=== PATIENT | male | born 1965 | race Asian ===

== ENCOUNTER 2017-09-18 23:10 | Emergency (ER) | payer OTHER ==
[~2017-09-18] VITALS: Ht 190.5 cm; Wt 99.8 kg
[~2017-09-18 23:10] MED LIST: DIAZ-345 PO; LVT.1T PO; PANT20TA2 PO
[2017-09-18] MEDS ORDERED: LACTATED RINGERS 1,000 ML IV ONE (23:29)
[2017-09-18] MEDS ORDERED: TETANUS,DIPTH,PERTUSS P/F (BOOSTRIX) 0.5 ML VIAL IM ONE (23:30)
[2017-09-18 23:50] LABS: BASOPHILS % (AUTO) 0 % (0-10); EOSINOPHILS # (AUTO) 0.1 10^3/uL (0.0-0.3); EOSINOPHILS % (AUTO) 1 % (0-10); HEMATOCRIT 38 % (40-54); HEMOGLOBIN 12.9 G/DL (13.3-17.7); LYMPHOCYTES # (AUTO) 3.5 X 10^3 (1.0-4.0); LYMPHOCYTES % (AUTO) 56 % (12-44); MEAN CORPUSCULAR HEMOGLOBIN 27 PG (25-34); MEAN CORPUSCULAR HGB CONC 34 G/DL (32-36); MEAN CORPUSCULAR VOLUME 80 FL (80-99); MEAN PLATELET VOLUME 12.6 FL (7.4-10.4); MONOCYTES # (AUTO) 0.5 X 10^3 (0.0-1.0); MONOCYTES % (AUTO) 7 % (0-12); NEUTROPHILS # (AUTO) 2.3 X 10^3 (1.8-7.8); NEUTROPHILS % (AUTO) 36 % (42-75); PLATELET COUNT 166 10^3/uL (130-400); RED BLOOD COUNT 4.76 10^6/uL (4.35-5.85); RED CELL DISTRIBUTION WIDTH 13.7 % (10.0-14.5); WHITE BLOOD COUNT 6.3 10^3/uL (4.3-11.0)
[2017-09-18 23:59] LABS: PROTHROMBIN TIME PATIENT 12.7 SEC (12.2-14.7)
[2017-09-19] MEDS ORDERED: NS 250 ML (IVPB) BAG IV ONE
[2017-09-19] MEDS ORDERED: IOHEXOL 350 MG/ML 100 ML (OMNIPAQUE 350) VIAL IV ONE
[2017-09-19 00:09] LABS: ALANINE AMINOTRANSFERASE 23 U/L (0-55); ALBUMIN 4.3 GM/DL (3.2-4.5); ALKALINE PHOSPHATASE 50 U/L (40-136); AMYLASE 37 U/L (25-125); BILIRUBIN,TOTAL 0.3 MG/DL (0.1-1.0); BUN/CREATININE RATIO 19; CALCIUM 9.4 MG/DL (8.5-10.1); CARBON DIOXIDE 22 MMOL/L (21-32); CHLORIDE 106 MMOL/L (98-107); CREATININE SERUM 0.98 MG/DL (0.60-1.30); GFR ESTIMATED > 60; GLUCOSE 119 MG/DL (70-105); LIPASE 28 U/L (8-78); POTASSIUM 4.1 MMOL/L (3.6-5.0); SODIUM 141 MMOL/L (135-145); TOTAL PROTEIN 7.3 GM/DL (6.4-8.2)
[2017-09-19] MEDS ORDERED: LEVO200T6 (00:18)
[2017-09-19] MEDS ORDERED: DEXT20TA8 (00:18)
[2017-09-19] MEDS ORDERED: DICL100G18 TP (01:25)
--- NOTE | 2017-09-19 01:26 | ED Trauma-Multisystem ---
General Chief Complaint: Trauma-Non Activation Stated Complaint: FELL THRU CEILING Nursing Triage Note: Pt reports fell thru ceiling of [employer] onto the floor landing on left side with hand /arm stretched out. C/O bilat sides hurting and hurts to take deep breathe. Pt continues to use texting and communicating with others throughout triage. 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[place] ) , AND FELL THROUGH THE CEILING OCCURRED AROUND 2230 TONIGHT PT LANDED ON OUTSTRETCHED LEFT HAND, LEFT SIDE OF BODY PT STATES HE HAD A MILD BUMP TO HIS HEAD, BUT NO LOSS OF CONSCIOUSNESS C/O LEFT RIB PAIN--STATES THEY FEEL LIKE THEY ARE POPPING AND IT HURTS TO BREATHE C/O DIFFUSE UPPER ABDOMINAL PAIN C/O RIGHT POSTERIOR RIB PAIN C/O LEFT SHOULDER PAIN C/O LEFT HAND AND WRIST PAIN C/O RIGHT ELBOW ABRASIONS/SUPERFICIAL LACERATIONS NO PARESTHESIAS OR MOTOR DEFICITS NO VISION CHANGES NO NAUSEA/VOMITING NO DIZZINESS NO NECK OR SPINE PAIN [facility]: DR. CHUNG Allergies and Home Medications Allergies Coded Allergies: No Known Drug Allergies (Unverified , 06/20/13) Home Medications Diclofenac Sodium 100 Gm Gel..gram., 100 GM TP TID Prescribed by: ALDO FELDER on 09/19/17 0125 Patient Home Medication List Home Medication List Reviewed: Yes Review of Systems Constitutional: no symptoms reported Eyes: No Symptoms Reported Ears: No Symptoms Reported Nose: No Symptoms Reported Mouth: No Symptoms Reported Throat: No Symptoms to Report Respiratory: see HPI Cardiovascular: See HPI Gastrointestinal: see HPI Genitourinary: no symptoms reported Musculoskeletal: see HPI Skin: see HPI Psychiatric/Neurological: No Symptoms Reported; Denies Cognitive Dysfunction, Denies Headache Past Vafogsj-Yewvyr-Xxjzqs Hx Patient Social History Alcohol Use: Regular Use Recreational Drug Use: No Smoking Status: Never a Smoker Recent Foreign Travel: No Contact w/Someone Who Travel: No Recent Infectious Disease Expo: No Recent Hopitalizations: No Immunizations Up To Date Tetanus Booster (TDap): More than 5yrs Seasonal Allergies Seasonal Allergies: No Past Medical History Surgeries: Yes (ganglion cyst removal) Respiratory: No Cardiac: No Neurological: No Genitourinary: No Gastrointestinal: No Musculoskeletal: No Endocrine: Yes Hypothyroidsim HEENT: No Cancer: No Psychosocial: Yes ADD/ADHD Integumentary: No Blood Disorders: No Adverse Reaction/Blood Tranf: No Physical Exam Vital Signs Vital Signs - First Documented 09/18/17 23:21 Temp 98.6 Pulse 87 Resp 20 B/P (MAP) 154/109 (124) Pulse Ox 99 O2 Delivery Room Air Temperature (Fahrenheit): 98.6 General Appearance: No Apparent Distress, WD/WN, Other (SMILING, VERY TALKATIVE , PT IS TEXTING/ PLAYING ON PHONE THROUGHOUT ER STAY) Head: No Evidence of Injury Eyes: Bilateral Eye Normal Inspection (GLASSES INTACT), Bilateral Eye PERRL, Bilateral Eye EOMI Ears, Nose, Throat: Hearing Grossly Normal, No Evidence of ENT Injury, No Dental Injury Neck: Full Range of Motion, Normal Inspection, Non Tender, Supple Cardiovascular: Regular Rate, Rhythm, No Edema, No JVD, No Murmur, Normal Peripheral Pulses Respiratory: Normal Breath Sounds, No Accessory Muscle Use, No Respiratory Distress, Other (LEFT ANTERIOR/LATERAL/POSTERIOR CHEST WALL TENDERNESS, RIGHT POSTERIOR CHEST WALL TENDERNESS) Gastrointestinal: Normal Bowel Sounds, No Organomegaly, No Pulsatile Mass, Soft , Tenderness (DIFFUSE UPPER ABDOMINAL TENDERNESS) Back: Normal Inspection, No CVA Tenderness, No Vertebral Tenderness Extremity: Normal Capillary Refill, Normal Range of Motion, No Calf Tenderness , No Pedal Edema, Other (TENDERNESS TO LEFT SHOULDER, LEFT WRIST AND THENAR AREA , ABRASIONS AND TENDERNESS TO RIGHT ELBOW) Neurologic/Psychiatric: Alert, Oriented x3, No Motor/Sensory Deficits, Normal Mood/Affect, 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; No Abnormal Cerebellar Tests Skin: Normal Color, Warm/Dry, Other ( ABOVE) Progress/Results/Core Measures Results/Orders Lab Results Laboratory Tests Test 09/18/17 23:40 09/19/17 01:20 Range/Units White Blood Count 6.3 4.3-11.0 10^3/uL Red Blood Count 4.76 4.35-5.85 10^6/uL Hemoglobin 12.9 L 13.3-17.7 G/DL Hematocrit 38 L 40-54 % Mean Corpuscular Volume 80 80-99 FL Mean Corpuscular Hemoglobin 27 25-34 PG Mean Corpuscular Hemoglobin Concent 34 32-36 G/DL Red Cell Distribution Width 13.7 10.0-14.5 % Platelet Count 166 130-400 10^3/uL Mean Platelet Volume 12.6 H 7.4-10.4 FL Neutrophils (%) (Auto) 36 L 42-75 % Lymphocytes (%) (Auto) 56 H 12-44 % Monocytes (%) (Auto) 7 0-12 % Eosinophils (%) (Auto) 1 0-10 % Basophils (%) (Auto) 0 0-10 % Neutrophils # (Auto) 2.3 1.8-7.8 X 10^3 Lymphocytes # (Auto) 3.5 1.0-4.0 X 10^3 Monocytes # (Auto) 0.5 0.0-1.0 X 10^3 Eosinophils # (Auto) 0.1 0.0-0.3 10^3/uL Basophils # (Auto) 0.0 0.0-0.1 10^3/uL Prothrombin Time 12.7 12.2-14.7 SEC INR Comment 1.0 0.8-1.4 Activated Partial Thromboplast Time 26 24-35 SEC Sodium Level 141 135-145 MMOL/L Potassium Level 4.1 3.6-5.0 MMOL/L Chloride Level 106 98-107 MMOL/L Carbon Dioxide Level 22 21-32 MMOL/L Anion Gap 13 5-14 MMOL/L Blood Urea Nitrogen 19 H 7-18 MG/DL Creatinine 0.98 0.60-1.30 MG/DL Estimat Glomerular Filtration Rate > 60 BUN/Creatinine Ratio 19 Glucose Level 119 H 70-105 MG/DL Calcium Level 9.4 8.5-10.1 MG/DL Total Bilirubin 0.3 0.1-1.0 MG/DL Aspartate Amino Transf (AST/SGOT) 24 5-34 U/L Alanine Aminotransferase (ALT/SGPT) 23 0-55 U/L Alkaline Phosphatase 50 40-136 U/L Troponin I < 0.30 <0.30 NG/ML Total Protein 7.3 6.4-8.2 GM/DL Albumin 4.3 3.2-4.5 GM/DL Amylase Level 37 25-125 U/L Lipase 28 8-78 U/L Serum Alcohol < 10 <10 MG/DL Urine Color YELLOW Urine Clarity CLEAR Urine pH 6 5-9 Urine Specific [place] 1.015 L 1.016-1.022 Urine Protein 1+ H NEGATIVE Urine Glucose (UA) NEGATIVE NEGATIVE Urine Ketones NEGATIVE NEGATIVE Urine Nitrite NEGATIVE NEGATIVE Urine Bilirubin NEGATIVE NEGATIVE Urine Urobilinogen NORMAL NORMAL MG/DL Urine Leukocyte Esterase NEGATIVE NEGATIVE Urine RBC (Auto) NEGATIVE NEGATIVE Urine RBC NONE /HPF Urine WBC NONE /HPF Urine Squamous Epithelial Cells RARE /HPF Urine Crystals NONE /LPF Urine Bacteria NEGATIVE /HPF Urine Casts NONE /LPF Urine Mucus NEGATIVE /LPF Urine Culture Indicated NO Urine Opiates Screen NEGATIVE NEGATIVE Urine Oxycodone Screen NEGATIVE NEGATIVE Urine Methadone Screen NEGATIVE NEGATIVE Urine Propoxyphene Screen NEGATIVE NEGATIVE Urine Barbiturates Screen NEGATIVE NEGATIVE Ur Tricyclic Antidepressants Screen NEGATIVE NEGATIVE Urine Phencyclidine Screen NEGATIVE NEGATIVE Urine Amphetamines Screen POSITIVE H NEGATIVE Urine Methamphetamines Screen NEGATIVE NEGATIVE Urine Benzodiazepines Screen POSITIVE H NEGATIVE Urine Cocaine Screen NEGATIVE NEGATIVE Urine Cannabinoids Screen NEGATIVE NEGATIVE My Orders Orders - ALDO FELDER K DO Dipht,Pertuss(Acell),Tet Adult (Boostrix (09/18/17 23:30) Saline Lock/Iv-Start (09/18/17 23:29) Ekg Tracing (09/18/17 23:29) Monitor-Rhythm Ecg Trace Only (09/18/17 23:29) Ct Head/Cervical Spine Wo (09/18/17 23:29) Ct Thoracic/Lumbar Spine Wo (09/18/17 23:29) Amylase (09/18/17 23:29) Cbc With Automated Diff (09/18/17 23:29) Comprehensive Metabolic Panel (09/18/17 23:29) Lipase (09/18/17 23:29) Protime With Inr (09/18/17 23:29) Partial Thromboplastin Time (09/18/17 23:29) Troponin I (09/18/17 23:29) Ua Culture If Indicated (09/18/17 23:29) Saline Lock/Iv-Start (09/18/17 23:29) Lactated Ringers (Lr 1000 Ml Iv Solution (09/18/17 23:29) Ct Chest/Abdomen/Pelvis W (09/18/17 23:29) Iohexol Injection (Omnipaque 350 Mg/Ml 1 (09/19/17 00:00) Ns (Ivpb) (Sodium Chloride 0.9%) (09/19/17 00:00) Chest Pa/Lat (2 View) (09/19/17 00:01) Ribs, Left 2-3 Views (09/19/17 00:01) Shoulder, Left, 3 Views (09/19/17 00:01) Elbow, Right, 3 Views (09/19/17 00:01) Wrist, Left, 3 Views Or More (09/19/17 00:01) Hand, Left, 3 Views (09/19/17 00:01) Pelvis (09/19/17 00:01) Alcohol (09/19/17 00:16) Drug Screen Stat (Urine) (09/19/17 00:16) Wound Dressing-Ed (09/19/17 01:17) Ibuprofen Tablet (Motrin Tablet) (09/19/17 01:30) Ketorolac Injection (Toradol Injection) (09/19/17 01:30) Orphenadrine Injection (Norflex Injectio (09/19/17 01:30) Ketorolac Injection (Toradol Injection) (09/19/17 01:29) Orphenadrine Injection (Norflex Injectio (09/19/17 01:29) Medications Given in ED Current Medications Medications Dose Ordered Sig/Arlette Route Start Time Stop Time Status Last Admin Dose Admin Diphtheria/ Tetanus/Acell Pertussis 0.5 ml ONCE ONCE IM 09/18/17 23:30 09/18/17 23:34 DC 09/19/17 00:25 0.5 ML Ibuprofen 800 mg ONCE ONCE PO 09/19/17 01:30 09/19/17 01:31 DC 09/19/17 01:32 800 MG Iohexol 100 ml ONCE ONCE IV 09/19/17 00:00 09/19/17 00:01 DC 09/18/17 23:53 100 ML Ketorolac Tromethamine 30 mg ONCE ONCE IVP 09/19/17 01:30 09/19/17 01:41 DC 09/19/17 01:33 30 MG Lactated Ringer's 1,000 ml @ 0 mls/hr Q0M ONCE IV 09/18/17 23:29 09/18/17 23:34 DC 09/19/17 00:25 999 MLS/HR Orphenadrine Citrate 60 mg ONCE ONCE IVP 09/19/17 01:30 09/19/17 01:41 DC 09/19/17 01:32 60 MG Sodium Chloride 80 ml ONCE ONCE IV 09/19/17 00:00 09/19/17 00:01 DC 09/18/17 23:53 80 ML Vital Signs/I&O 09/18/17 09/19/17 09/19/17 09/19/17 23:21 00:25 01:32 01:33 Temp 98.6 98.6 98.6 98.6 Pulse 87 Resp 20 B/P (MAP) 154/109 (124) Pulse Ox 99 O2 Delivery Room Air 09/19/17 09/19/17 01:45 01:45 Temp 98.6 98.6 Pulse 84 87 Resp 20 20 B/P (MAP) 150/98 (124) 150/98 (115) Pulse Ox 99 99 O2 Delivery Room Air Room Air Blood Pressure Mean: 124 Progress Progress Note : Progress Note UNEVENTFUL ER STAY PT AMBULATES INTO AND OUT OF ER WITHOUT DIFFICULTY PT DECLINES ANY RX'S FOR PILLS, ONLY REQUESTS TOPICAL MEDICATION TO PUT ON SORE AREAS Initial ECG Impression Date: Sep 19, 2017 Initial ECG Impression Time: 00:24 Initial ECG Rate: 74 Initial ECG Rhythm: Normal Sinus Diagnostic Imaging Comments CXR--NO ACUTE PROCESS RIGHT ELBOW--NO ACUTE PROCESS LEFT SHOULDER--NO ACUTE PROCESS LEFT HAND--NO ACUTE PROCESS LEFT HAND--NO ACUTE PROCESS PELVIS--NO ACUTE PROCESS ALL PENDING RADIOLOGIST REVIEW CT THORACIC/LUMBAR SPINE--NO ACUTE PROCESS PER [facility] VIA FAX @ 0038 CT CHEST/ABDOMEN/PELVIS--NO ACUTE PROCESS, PER [facility] VIA FAX @ 0038 CT HEAD/CERVICAL SPINE--NO ACUTE PROCESS, PER [facility] VIA FAX @ 0112 Reviewed: Reviewed by Me Departure Impression Primary Impression: S/P FALL THROUGH CEILING Additional Impressions: MINOR HEAD CONTUSION WITHOUT LOSS OF CONSCIOUSNESS Contusion of left shoulder Chest wall contusion Contusion of left hand Left wrist sprain Cervical strain Back strain Dffjgwdvvr-cjfvoyxwc-itneqzt (DPT) vaccination administered at current visit Abrasion of right elbow, initial encounter Disposition: 01 HOME, SELF-CARE Condition: Stable Departure-Patient Inst. Referrals: JOSE CHUNG DO (PCP/Family) Primary Care Physician Patient Instructions: CHEST CONTUSION, Cervical Muscle Strain (DC), Lumbar Muscle Strain (DC), Minor Head Injury (DC), Shoulder Sprain (DC), Skin Abrasions (DC), Wound Care (DC), Wrist Sprain (DC) Add. Discharge Instructions: ICE TO SORE AREAS AT 20 MINUTE INTERVALS FOR FIRST 2 DAYS, THEN ALTERNATE ICE AND HEAT TO SORE AREAS AT 20 MINUTE INTERVALS ACTIVITIES TOLERATED TYLENOL 1 GRAM / MOTRIN 800 MG 4 TIMES A DAY FOR PAIN FOLLOW UP WITH YOUR DR IN 1 WEEK IF NO BETTER All discharge instructions reviewed with patient and/or family. Voiced understanding. Scripts Diclofenac Sodium (Voltaren) 100 Gm Gel..gram. 100 GM TP TID, #1 TUBE Prov: ALDO FELDER DO 09/19/17 ALDO FELDER DO Sep 19, 2017 01:26
[2017-09-19] MEDS ORDERED: ORPHENADRINE 60 MG/2 ML (NORFLEX) AMP ONE (01:29)
[2017-09-19] MEDS ORDERED: KETOROLAC 30 MG/ML VIAL ONE (01:29)
[2017-09-19 01:30] LABS: BILIRUBIN,URINE NEGATIVE (NEGATIVE); CLARITY,URINE CLEAR; COLOR,URINE YELLOW; GLUCOSE, URINE (UA) NEGATIVE (NEGATIVE); KETONES,URINE NEGATIVE (NEGATIVE); LEUKOCYTE ESTERASE ,URINE NEGATIVE (NEGATIVE); NITRITE,URINE NEGATIVE (NEGATIVE); PH,URINE 6 (5-9); PROTEIN,URINE 1+ (NEGATIVE); UROBILINOGEN,URINE NORMAL (NORMAL)
[2017-09-19] MEDS ORDERED: ORPHENADRINE 60 MG/2 ML (NORFLEX) AMP IVP ONE (01:30)
[2017-09-19] MEDS ORDERED: KETOROLAC 30 MG/ML VIAL IVP ONE (01:30)
[2017-09-19] MEDS ORDERED: IBUPROFEN 800 MG (MOTRIN) TAB PO ONE (01:30)
[2017-09-19 01:37] LABS: BACTERIA,URINE NEGATIVE /HPF; SQUAMOUS EPITHELIAL CELL,UR RARE /HPF
[2017-09-19 01:42] LABS: AMPHETAMINE SCREEN, URINE POSITIVE (NEGATIVE); BARBITURATE SCREEN URINE NEGATIVE (NEGATIVE); BENZODIAZEPINES SCREEN URINE POSITIVE (NEGATIVE); CANNABINOID SCREEN, URINE NEGATIVE (NEGATIVE); COCAINE SCREEN URINE NEGATIVE (NEGATIVE); METHADONE STAT NEGATIVE (NEGATIVE); METHAMPHETAMINE SCREEN URINE S NEGATIVE (NEGATIVE); OPIATE SCREEN URINE NEGATIVE (NEGATIVE); OXYCODONE STAT NEGATIVE (NEGATIVE); PROPOXYPHENE STAT NEGATIVE (NEGATIVE); TRICYCLIC ANTIDEPRESSANTS SCRE NEGATIVE (NEGATIVE)
[2017-09-19 01:45] VITALS: BP 150/98
--- NOTE | 2017-09-19 07:28 | Diagnostic Imaging Report ---
INDICATION: Status post fall through ceiling with pelvic pain. TECHNIQUE: AP pelvis 12:41 AM CORRELATION STUDY: None FINDINGS: The pelvis demonstrates no evidence for acute fracture. The pectineal lines and obturator rings are maintained. Pubic symphysis and SI joints are unremarkable. Hips unremarkable. Contrast material in the urinary bladder does obscure some bony detail. IMPRESSION: Negative examination of the pelvis. Dictated by: Dictated on workstation # [id number]
--- NOTE | 2017-09-19 07:29 | Diagnostic Imaging Report ---
INDICATION: Trauma, fall through ceiling, pain. TECHNIQUE: Three views of the left hand. CORRELATION STUDY: None FINDINGS: There is normal alignment and appearance of the osseous structures of the hand. The joint spaces are maintained. There is no acute fracture. Mild narrowing radiocarpal row. Soft tissues are unremarkable. IMPRESSION: 1. Negative for acute bony abnormality of the hand. Dictated by: Dictated on workstation # [id number]
--- NOTE | 2017-09-19 07:32 | Diagnostic Imaging Report ---
INDICATION: Fall. COMPARISON: None. FINDINGS: Three views of the left shoulder are obtained. No acute fracture, malalignment or osseous destructive process is seen. The glenohumeral and the acromioclavicular joints appear unremarkable. IMPRESSION: Negative left shoulder. Dictated by: Dictated on workstation # [id number]
--- NOTE | 2017-09-19 07:34 | Diagnostic Imaging Report ---
INDICATION: Trauma COMPARISON: None FINDINGS: Two views of the chest were obtained. Heart size is normal. The pulmonary vessels appear unremarkable. Thoracic aorta is mildly tortuous. There is no mediastinal widening. There is no pneumothorax or pleural fluid. Diaphragms are mildly flattened suggestive of COPD. Lungs otherwise clear. No acute osseous abnormality is suspected. IMPRESSION: No evidence of an acute cardiopulmonary abnormality. Dictated by: Dictated on workstation # [id number]
--- NOTE | 2017-09-19 07:34 | Diagnostic Imaging Report ---
INDICATION: Trauma, fall through ceiling, rib pain. TECHNIQUE: Three views left ribs 12:39 a.m. CORRELATION STUDY: None FINDINGS: No acute displaced left rib fracture. The left lung with minimal atelectasis at its base. No significant effusion or pneumothorax. IMPRESSION: 1. Negative for acute displaced left rib fracture. Dictated by: Dictated on workstation # [id number]
--- NOTE | 2017-09-19 07:36 | Diagnostic Imaging Report ---
INDICATION: Trauma, fall through ceiling, pain TECHNIQUE: 3 views of the right elbow CORRELATION STUDY: None FINDINGS: Alignment anatomic. No acute fracture. Mild ossification along the lateral epicondyle may be likely chronic in nature. Minimal spurlike bony protuberance off the proximal ulna. No abnormal joint effusion. IMPRESSION: 1. Negative for acute bony abnormality of the elbow. Likely mild degenerative changes. Dictated by: Dictated on workstation # [id number]
--- NOTE | 2017-09-19 07:50 | Diagnostic Imaging Report ---
INDICATION: Trauma, fall through ceiling, pain. TECHNIQUE: Four views of the left wrist. CORRELATION STUDY: None. FINDINGS: Mild narrowing of the radiocarpal row is present likely chronic and degenerative. Very slight prominent appearance of scapholunate interval but does remain within normal limits. Minimal cystic change about the scaphoid and lunate. The visualized soft tissues appearing unremarkable. IMPRESSION: 1. Negative acute bony abnormality about the left wrist. Likely degenerative change of the radiocarpal row. Scapholunate interval slightly prominent but remains within normal limits. Dictated by: Dictated on workstation # [id number]
--- NOTE | 2017-09-19 08:04 | Diagnostic Imaging Report ---
PROCEDURE: CT chest, abdomen, and pelvis with contrast. TECHNIQUE: Multiple contiguous axial images were obtained through the chest, abdomen, and pelvis after the administration of intravenous contrast. INDICATION: Status post fall through ceiling, pain. CORRELATION STUDY: None FINDINGS: CT CHEST: Heart size normal. Thoracic aorta appearing unremarkable without evidence for aneurysm or dissection. No significant mediastinal hematoma. No pathologically enlarged lymphadenopathy. Small hiatal hernia. Lung rodriguez are clear. No infiltrate or evidence for contusion. No significant effusion or pneumothorax. Multifocal degenerative change about the thoracic spine with slight anterior wedging lower thoracic vertebral bodies and disc space narrowing. CT ABDOMEN and PELVIS: Liver, spleen, pancreas, gallbladder, adrenal glands and kidneys are unremarkable. Abdominal aorta normal in contour. Gastrointestinal tract demonstrates mild distention with retained gastric contents in the stomach. Mild severity fecal retention. No obstruction or inflammation. Normal appendix. No abdominal ascites or free air. Urinary bladder unremarkable. Prostate gland unremarkable. Small fat-containing bilateral inguinal hernias. Osseous structures demonstrate no suggestion for acute bony abnormality. There is asymmetric disc space narrowing at L5-S1 level. Osteophyte results in foraminal narrowing. IMPRESSION: CT CHEST: 1. Negative for acute traumatic abnormality about the chest. CT ABDOMEN and PELVIS: 1. Negative for acute traumatic abnormality about the abdomen and/or pelvis. A preliminary report was provided by [employer]. Dictated by: Dictated on workstation # [id number]
--- NOTE | 2017-09-19 08:15 | Diagnostic Imaging Report ---
INDICATION: Trauma, fall through ceiling, pain. TECHNIQUE: Noncontrast CT imaging of the thoracic and lumbar spine with multiplanar reformatted images.. CORRELATION STUDY: None FINDINGS: Thoracic spinal alignment appearing to be anatomic apart from slight accentuated kyphotic curvature. Mild anteriorly wedged midthoracic vertebral bodies are present appearing nonacute. No acute bony abnormality or significant compression deformity. Multilevel thoracic spondylosis with disc space narrowing and end plate osteophyte formation. Posterior elements with slight asymmetric areas of hypertrophic change but otherwise unremarkable. No high degree osseous narrowing of the spinal canal. Paraspinal soft tissues unremarkable. Lumbar spinal alignment demonstrate alignment to be anatomic. Multilevel degenerative changes are present particularly at the L5-S1 level where there is marked disc space narrowing. Endplate ossified results in bilateral osseous narrowing of the neural foramina. Less severe narrowing at the L4-5 level. Lumbar vertebral body heights are maintained. No acute appearing compression deformity. Posterior elements intact. Paraspinal soft tissues are unremarkable. IMPRESSION: 1. Negative for acute fracture about the thoracic spine. Diffuse thoracic spondylosis. 2. Negative for acute fracture or traumatic subluxation of the lumbar spine with advanced lower lumbar spine degenerative disc disease. A preliminary report was provided by [employer]. Dictated by: Dictated on workstation # [id number]
--- NOTE | 2017-09-19 08:45 | Diagnostic Imaging Report ---
PROCEDURE: CT head and CT cervical spine without contrast. TECHNIQUE: Multiple contiguous axial images were obtained through the brain and cervical spine without the use of intravenous contrast. Sagittal and coronal reformations through the cervical spine were then performed. INDICATION: Fall from a height COMPARISON: None FINDINGS: Head CT: No acute intracranial hemorrhage, mass effect or edema is seen. Joseph-white junction is preserved. Ventricles appear normal. No acute focal abnormality is suspected. The paranasal sinuses and mastoids are clear as visualized. No basilar skull fracture is suspected. Cervical spine CT: No acute fracture, malalignment or osseous destructive process is seen. Vertebral body heights appear maintained. There is disc space narrowing and spurring at C4/C5, C5/C6 and C6/C7. Some mild facet arthropathy at multiple levels. Soft tissues appear unremarkable. IMPRESSION: 1. No evidence of acute cervical spine abnormality. 2. No evidence of an acute intracranial abnormality. Agree with [employer] interpretation Dictated by: Dictated on workstation # [id number]
== END 2017-09-19 01:40 | disposition home or self-care (01) ==
LOC: EDUNIT# 23:10 → ER 23:15
DX: S16.1XXA Strain of muscle, fascia and tendon at neck level, initial encounter (principal); S39.012A Strain of muscle, fascia and tendon of lower back, initial encounter; S63.501A Unspecified sprain of right wrist, initial encounter; S00.83XA Contusion of other part of head, initial encounter; S20.212A Contusion of left front wall of thorax, initial encounter; S40.012A Contusion of left shoulder, initial encounter; S60.222A Contusion of left hand, initial encounter; S50.311A Abrasion of right elbow, initial encounter; E03.9 Hypothyroidism, unspecified; F90.9 Attention-deficit hyperactivity disorder, unspecified type; Z23 Encounter for immunization; W17.89XA Other fall from one level to another, initial encounter
CPT/HCPCS: 36415; 70450; 71046; 71100; 71260; 72125; 72128; 72131; 72170; 73030; 73080; 73110; 73130; 74177; 80053; 80306; 80320; 81000; 82150; 83690; 84484; 85025; 85610; 85730; 90471; 90715; 93005; 96361; 96374; 96375

== ENCOUNTER → 2020-09-23 | Outpatient (CLI) | payer OTHER ==
[~2020-09-23] MED LIST changes: +CATHETER FLUSH 10 ML SYR IV PRN; +DEXT20TA8; +DICL100G18 TP; +LEVO200T6; +REGADENOSON 0.4 MG/5 ML SYR (LEXISCAN) IV ONE
[2020-09-23 07:57] VITALS: BP 141/93
== END ==
LOC: CARD 07:15
PROVIDERS: ATTEND Nurse Practitioner Family
DX: R07.89 Other chest pain (principal)
CPT/HCPCS: 78452; 93017; A9502

== ENCOUNTER → 2021-09-01 | Outpatient (CLI) | payer OTHER ==
[~2021-09-01] MED LIST changes: +HOLD METFORMIN - RECEIVED CONTRAST 20 ML VIAL IV SCH; +IOHEXOL 350 MG/ML 100 ML (OMNIPAQUE 350) VIAL IV ONE; +NS 100 ML (IVPB) BAG IV ONE; -REGADENOSON 0.4 MG/5 ML SYR (LEXISCAN) IV ONE
--- NOTE | 2021-09-01 10:33 | Diagnostic Imaging Report ---
INDICATION: Low back pain. Comparison with CT scan of the lumbar spine from 09/18/2017. FINDINGS: Good alignment of vertebral bodies. Body height well-maintained. There is complete loss of disc space height at L5-S1 with desiccation. There is sclerosis of the endplates with hypertrophic lipping. The remaining lumbar discs are well-preserved. There is mild hypertrophic lipping of the endplates anteriorly throughout the lumbar region. Facets show good alignment without pars defect. Mild hypertrophic changes at L5-S1 noted. SI joints are symmetrical with minimal sclerotic change. IMPRESSION: Advanced degenerative disc disease with Modic changes L5-S1. There has been some progression since 2018. Dictated by: Dictated on workstation # [id number]
--- NOTE | 2021-09-01 11:35 | Diagnostic Imaging Report ---
INDICATION: Paresthesias of the right lower extremity COMPARISON: None available. TECHNIQUE: Ultrasound of the large arterial structures of the right lower extremity was performed on 09/01/2021. Doppler duplex interrogation was also performed. Grayscale and color imaging performed. FINDINGS: Triphasic waveforms are identified throughout the large arterial structures of the right lower extremity. No focally increased velocities. Normal waveforms without blunted waveforms. IMPRESSION: No evidence of hemodynamically significant stenosis within the large arterial structures of the right lower extremity. Dictated by: Dictated on workstation # [id number]
== END ==
LOC: RAD 09:10
PROVIDERS: ATTEND Nurse Practitioner Family
DX: M51.37 Other intervertebral disc degeneration, lumbosacral region (principal)
CPT/HCPCS: 72110; 93926

== ENCOUNTER → 2021-09-21 | Outpatient (CLI) | payer BC ==
[~2021-09-21] MED LIST changes: -CATHETER FLUSH 10 ML SYR IV PRN; -HOLD METFORMIN - RECEIVED CONTRAST 20 ML VIAL IV SCH; -IOHEXOL 350 MG/ML 100 ML (OMNIPAQUE 350) VIAL IV ONE; -NS 100 ML (IVPB) BAG IV ONE
--- NOTE | 2021-09-21 12:52 | Diagnostic Imaging Report ---
PROCEDURE: MRI lumbar spine. TECHNIQUE: Multiplanar, multisequence MRI of the lumbar spine was performed without contrast. INDICATION: Low back pain. COMPARISON: Lumbar spine radiographs from 09/01/2021. FINDINGS: There is mild straightening of lumbar spine. No spondylolisthesis. No fracture concerning marrow replacing process. Distal thoracic cord is normal in appearance. No features of extradural fluid collection. Paravertebral and psoas muscles are normal. No concerning abnormality in the retroperitoneum. L1-L2: No spinal canal or neural foraminal stenosis. L2-L3: No spinal canal or neural foraminal stenosis. L3-L4: No spinal canal or neural foraminal stenosis. L4-L5: Disc bulge with ligamentum flavum hypertrophy results in mild spinal canal stenosis but no mass effect on the nerve roots in the lateral recess. Mild bilateral neural foraminal narrowing is also present but there is no mass effect on the nerve roots in the foramen. L5-S1: Right paracentral disc protrusion compresses the right S1 nerve root in the lateral recess. Overall there is moderate spinal canal stenosis. Moderate bilateral neural foraminal narrowing due to intervertebral height loss and disc bulging. There is no mass effect on the exiting L5 nerve roots on either side. IMPRESSION: 1. Right paracentral disc protrusion at L5-S1 causes severe narrowing of the right lateral recess and compresses the right S1 nerve root. This likely is a source of patient's right lower extremity numbness. Dictated by: Dictated on workstation # [id number]
== END ==
LOC: RAD 07:40
PROVIDERS: ATTEND Nurse Practitioner Family
DX: M51.27 Other intervertebral disc displacement, lumbosacral region (principal); M48.08 Spinal stenosis, sacral and sacrococcygeal region; R20.2 Paresthesia of skin
CPT/HCPCS: 72148

== ENCOUNTER → 2021-12-12 | Outpatient (CLI) | payer BC ==
--- NOTE | 2021-12-12 09:32 | Diagnostic Imaging Report ---
INDICATION: Bilateral foot pain 3 views of each foot were obtained. Joint spaces are well maintained. There is no fracture or dislocation. IMPRESSION: Unremarkable bilateral feet. Dictated by: Dictated on workstation # [id number]
== END ==
LOC: RAD 08:58
DX: M25.571 Pain in right ankle and joints of right foot (principal); M25.572 Pain in left ankle and joints of left foot